=== PATIENT | female | born 1995 | race African-American/Black ===

== ENCOUNTER 2021-11-15 12:10 | Outpatient (CLI) | payer OTHER ==
[2021-11-15] MEDS ORDERED: GADOBUTROL 15 MMOL/15 ML VIAL ONE (12:25)
[2021-11-15] MEDS ORDERED: GADOBUTROL 15 MMOL/15 ML VIAL IVP ONE (14:43)
--- NOTE | 2021-11-15 18:26 | MRI Report ---
PROCEDURE: Orbits W/WO INDICATIONS: PAPILLEDEMA CONTRAST: IV CONTRAST: Gadavist ml: 11.3 TECHNIQUE: Noncontrast sagittal T1 spin echo, axial FLAIR, axial gradient echo, axial diffusion and ADC acquired through the brain. Coronal STIR, thin-slice axial T1 spin echo through the orbits. After the admin istration of contrast, thin slice axial and coronal T1 spin echo with fat saturation through the orbi ts, axial T1 spin echo with fat saturation through the brain. COMPARISON: None. FINDINGS: Image quality: Excellent. Orbits: There is a mild amount of increased fluid seen along the optic nerves, with prominence of th e subarachnoid spaces, which is more prominent on the right than on the left, as on series 6 image 9. The globes are symmetrical. The optic nerves are normal in size, without abnormal signal or enhancem ent. No retrobulbar masses or fat abnormalities. The extra-ocular muscles are normal and symmetric in appearance. Lacrimal glands are normal. Optic chiasm is normal. Periorbital soft tissues appear normal. CSF spaces: Ventricles are normal in size and shape. Basal cisterns are patent. No extra-axial flu id collections. Brain: No intracranial bleeds or mass effects. A nonenhancing cyst can be seen within the right ante rior temporal lobe, as on series 14 image 11. No abnormal intracranial enhancement. Hogan-white matte r interface is intact. Diffusion weighted images demonstrate no acute ischemic insults. Brainstem a ppears normal. Normal intravascular flow voids are present. The lateral aspects of the transverse ve nous sinuses do not appear abnormally decreased in size. An "empty sella" can be seen, with the pituitary tissue partially flattened along the floor of the se lla turcica. Skull and face: Calvarial marrow is normal in signal. Sinuses: Sinuses and mastoids are clear. IMPRESSION: Findings are seen, which are supportive of a clinical diagnosis of idiopathic intracranial hypertensi on. Reviewed by: Zenon Christian MD on 11/15/2021 5:25 PM AKMAULIK Approved by: Zenon Christian MD on 11/15/2021 5:25 PM AKMAULIK Station ID: [id number]
== END 2021-11-15 12:11 | disposition home or self-care (01) ==
LOC: DI 12:10
PROVIDERS: ATTEND Optometrist
DX: H47.10 Unspecified papilledema (principal); R93.0 Abnormal findings on diagnostic imaging of skull and head, not elsewhere classified
CPT/HCPCS: 70543; A9585